=== PATIENT | female | born 1990 | race American Indian/Alaskan Native ===

== ENCOUNTER 2016-10-08 12:06 | Emergency (ER) | payer OTHER ==
[2016-10-08 12:13] VITALS: BP 125/58; PULSE 93; TEMP 98.1; BMI 22.4
[2016-10-08] MEDS ORDERED: LIDOCAINE 2.5%/PRILOCAINE 2.5% (5 Gram/TUBE) TP ONE (14:34)
--- NOTE | 2016-10-08 14:50 | PDOC ---
History of Present Illness - General Chief Complaint: Hemorrhoids Stated Complaint: RECTAL BLEEDING Time Seen by Provider: 10/08/16 13:32 History Source: Patient Exam Limitations: No Limitations - History of Present Illness Initial Comments: 10/08/16 15:30 My Chief Complaint: rectal bleeding today, hemorrhoid History of Present Illness: Pt. is a 26 year old female with no significant medical issues here today due to pt.noticing bleeding from his rectum today, with external hemorrhoid that has been enlarged and painful. Pt.'s noticed that hemorrhoid was bluish this morning and is not longer blusish now. Pt. reports having external hemorrhoid when she was over one year ago. She denies any nausea or vomiting or diarrhea patient last had a bowel movement small brown soft formed earlier today. Reports at times when having a bowel movement. Pt. denies any chance of . Timing/Duration: getting worse (bleeding from rectum, hemorrhoid external ) Severity: moderate Associated Symptoms: reports: other Past History - Past Medical History Allergies/Adverse Reactions: Allergies Allergy/AdvReac Type Severity Reaction Status Date / Time No Known Allergies Allergy Verified 10/08/16 12:12 Home Medications: Ambulatory Orders Oxycodone HCl/Acetaminophen [Percocet 5-325 mg Tablet] 1 tab PO Q6H PRN #11 tablet MDD 4 10/08/16 Asthma: No Cancer: No Cardiac Disorders: No Diabetes: No HTN: No Suicide Attempt (Hx): No Seizures: No Thyroid Disease: No Other medical history: PATIENT DENIES MEDICAL HX - Psycho/Social/Smoking Cessation Hx Suicidal Ideation: No Smoking History: Never smoked Have you smoked in the past 12 months: No Hx Alcohol Use: No Drug/Substance Use Hx: No Substance Use Type: None Hx Substance Use Treatment: No Review of Systems - Review of Systems Able to Perform ROS?: Yes Constitutional: No: Symptoms Reported HEENTM: No: Symptoms Reported Respiratory: No: Symptoms reported Cardiac (ROS): No: Symptoms Reported ABD/GI: Yes: Other (bleeding from rectal area external hemorrhoid today ) : No: Symptoms Reported Musculoskeletal: No: Symptoms Reported Integumentary: No: Symptoms Reported Neurological: No: Symptoms reported *Physical Exam - Vital Signs Last Vital Signs Temp Pulse Resp BP Pulse Ox 98.1 F 93 H 16 125/58 96 10/08/16 12:10/08/16 12:09 10/08/16 12:09 10/08/16 12:09 10/08/16 12:09 - Physical Exam General Appearance: Yes: Appropriately Dressed Respiratory/Chest: positive: Lungs Clear, Normal Breath Sounds Cardiovascular: positive: Regular Rhythm, Regular Rate, S1, S2 Gastrointestinal/Abdominal: positive: Normal Bowel Sounds, Soft. negative: Tender, Organomegaly, Distended, Guarding, Rebound, Tenderness, Hepatomegaly, Spleenomegaly Rectal Exam: positive: hemorrhoids (external inflammed with bleeding, tiny open area on hemorroid noted, with clot, unable to do rectal exam due to pain). negative: decreased tone Integumentary: positive: Normal Color Neurologic: positive: Alert, Responsive Medical Decision Making - Medical Decision Making 10/08/16 15:35 Pt. is a 26 year old female with no significant medical issues here today due to pt.noticing bleeding from his rectum today, with external hemorrhoid that has been enlarged and painful. Pt.'s noticed that hemorrhoid was bluish this morning and is not longer blusish now. Pt. reports having external hemorrhoid when she was over one year ago. She denies any nausea or vomiting or diarrhea patient last had a bowel movement small brown soft formed earlier today. Reports at times when having a bowel movement. Pt. denies any chance of . External ruptured thrombosed external hemorrhoid PLAN: urine hcg negative percocet 5 mg/325 mg po now than every 6 hrs prn severe pain # 12 hemmocult + emla cream applied in ER to apply 4 hrs prn pain unable to do rectal exam due to pain Dr. Pinto consulted her recommended percocet 5mg/325 mg every 6 hrs prn pain sitz bath if this alleviates pain 30 Gm of fiber daily, may eat three bars of fiber one daily and drink 64 oz of water daily ' follow up with him tomorrow to call his office [phone] 10/08/16 18:47 *DC/Admit/Observation/Transfer Diagnosis at time of Disposition: Bleeding external hemorrhoids - Discharge Dispostion Disposition: HOME Condition at time of disposition: Stable - Prescriptions Prescriptions: Oxycodone HCl/Acetaminophen [Percocet 5-325 mg Tablet] 1 tab PO Q6H PRN #11 tablet MDD 4 PRN Reason: Severe Pain - Referrals Referrals: Nick Pinto MD [Staff Physician] - - Patient Instructions Additional Instructions: sitz bath if this alleviates pain 30 Gm of fiber daily, may eat three bars of fiber one daily and drink 64 oz of water daily ' follow up with him tomorrow to call his office [phone] apply EMLA cream every 4 hours to hemorrhoid return to emergency room if bleeding or pain is severe Patient voiced understanding of discharge instructions and all questions were answered - Post Discharge Activity Work/School Note: Back to Work
[2016-10-08] MEDS ORDERED: OXYCODONE/APAP 5/325MG COMBO TABLET PO ONE (15:07)
[2016-10-08] MEDS ORDERED: OXYCODONE/APAP 5/325MG COMBO TABLET ONE (15:14)
== END 2016-10-08 15:43 | disposition home or self-care (01) ==
LOC: JERFT 12:06
DX: K64.5 Perianal venous thrombosis (principal)
CPT/HCPCS: 82272; 84703; 99281-25

== ENCOUNTER 2020-12-31 11:01 | Emergency (ER) | payer OTHER ==
[2020-12-31 11:09] VITALS: BMI 24.0
[2020-12-31] MEDS ORDERED: SODIUM CHLORIDE 0.9% 500 ML INFUS.BAG IV ONE (11:37)
[2020-12-31 12:17] LABS: BASO % 0.2 % (0-2.0); EOS % 0.2 % (0-4.5); HEMATOCRIT 29.3 % (32.4-45.2); HEMOGLOBIN 9.9 GM/dL (10.7-15.3); LYMPH % 13.6 % (8-40); MCH 30.5 pg (25.7-33.7); MCHC 33.9 g/dl (32.0-36.0); MEAN CELL VOLUME 89.9 fl (80-96); MEAN PLT VOLUME 7.5 fl (7.5-11.1); MONO % 4.4 % (3.8-10.2); NEUT % 81.6 % (42.8-82.8); PLATELET COUNT 249 10^3/uL (134-434); RBC 3.26 M/mm3 (3.60-5.2); RDW 13.9 % (11.6-15.6); WHITE BLOOD COUNT 14.1 K/mm3 (4.0-10.0)
[2020-12-31 12:23] LABS: INR 1.02 (0.83-1.09); PROTHROMBIN TIME (PATIENT) 12.3 SEC (9.7-13.0)
[2020-12-31 12:25] LABS: ACTIVATED PTT 27.5 SECONDS (25.2-36.5)
[2020-12-31 12:36] LABS: CALCIUM 8.9 mg/dL (8.5-10.1)
[2020-12-31 12:37] LABS: ALBUMIN 2.9 g/dl (3.4-5.0)
[2020-12-31 12:40] LABS: CREATININE 0.5 mg/dL (0.55-1.3)
[2020-12-31 12:41] LABS: BILIRUBIN,TOTAL 0.2 mg/dL (0.2-1)
[2020-12-31 12:42] LABS: TOT PROT 6.7 g/dl (6.4-8.2)
[2020-12-31 13:17] LABS: URINE APPEARANCE Clear; URINE BILIRUBIN Negative (NEGATIVE); URINE COLOR Yellow; URINE GLUCOSE (UA) Negative (NEGATIVE); URINE KETONE Negative (NEGATIVE); URINE LEUK ESTERASE Negative (NEGATIVE); URINE NITRITE Negative (NEGATIVE); URINE PROTEIN Negative (NEGATIVE); URINE UROBILINOGEN 0.2 mg/dL (0.2-1.0)
[2020-12-31 14:33] VITALS: BP 85/49; PULSE 84; TEMP 98.7
== END 2020-12-31 15:00 | disposition home or self-care (01) ==
LOC: JER 11:01
DX: O20.8 Other hemorrhage in early pregnancy (principal); Z3A.17 17 weeks gestation of pregnancy
CPT/HCPCS: 36415; 76815-TC; 76817-TC; 80053; 81003; 85025; 85610; 85730; 86850; 86900; 86901; 93005; 93010; 99284-25

== ENCOUNTER 2021-01-26 16:15 | Inpatient (IN) | payer OTHER ==
[2021-01-26 18:22] LABS: HEMATOCRIT 25.9 % (32.4-45.2); HEMOGLOBIN 8.9 GM/dL (10.7-15.3); MCH 31.5 pg (25.7-33.7); MCHC 34.3 g/dl (32.0-36.0); MEAN CELL VOLUME 92.1 fl (80-96); PLATELET COUNT 270 10^3/uL (134-434); RBC 2.81 M/mm3 (3.60-5.2); RDW 14.6 % (11.6-15.6); WHITE BLOOD COUNT 10.4 K/mm3 (4.0-10.0)
[2021-01-26 18:30] LABS: INR 0.95 (0.83-1.09); PROTHROMBIN TIME (PATIENT) 11.7 SEC (9.7-13.0)
[2021-01-26 18:33] LABS: ACTIVATED PTT 23.4 SECONDS (25.2-36.5)
[2021-01-26] MEDS ORDERED: ELECTROLYTE-148 SOLN 1,000 ML IV SCH (19:30)
[2021-01-26] MEDS ORDERED: BUTORPHANOL TARTRATE 1 MG/ML VIAL IVPUSH ONE (21:14)
[2021-01-26] MEDS ORDERED: PROMETHAZINE HCL 25 MG/1 ML VIAL IVPUSH ONE (21:14)
[2021-01-26 22:09] VITALS: BMI 24.2
[2021-01-27 08:33] LABS: BASO % 0.1 % (0-2.0); EOS % 0.8 % (0-4.5); HEMATOCRIT 21.3 % (32.4-45.2); HEMOGLOBIN 7.3 GM/dL (10.7-15.3); LYMPH % 23.2 % (8-40); MCH 32.2 pg (25.7-33.7); MCHC 34.3 g/dl (32.0-36.0); MEAN CELL VOLUME 93.9 fl (80-96); MEAN PLT VOLUME 8.3 fl (7.5-11.1); NEUT % 69.9 % (42.8-82.8); PLATELET COUNT 215 10^3/uL (134-434); RBC 2.26 M/mm3 (3.60-5.2); RDW 14.4 % (11.6-15.6); WHITE BLOOD COUNT 9.1 K/mm3 (4.0-10.0)
[2021-01-27 08:41] LABS: INR 0.96 (0.83-1.09); PROTHROMBIN TIME (PATIENT) 11.6 SEC (9.7-13.0)
[2021-01-27] MEDS: INDOMETHACIN 25 MG CAPSULE PO SCH ×2 (16:30→21:42)
[2021-01-28 03:25] LABS: BASO % 0.1 % (0-2.0); EOS % 0.9 % (0-4.5); HEMATOCRIT 29.5 % (32.4-45.2); HEMOGLOBIN 10.4 GM/dL (10.7-15.3); LYMPH % 24.7 % (8-40); MCH 31.8 pg (25.7-33.7); MCHC 35.1 g/dl (32.0-36.0); MEAN CELL VOLUME 90.5 fl (80-96); MONO % 6.4 % (3.8-10.2); NEUT % 67.9 % (42.8-82.8); PLATELET COUNT 204 10^3/uL (134-434); RBC 3.27 M/mm3 (3.60-5.2); RDW 14.3 % (11.6-15.6)
[2021-01-28] MEDS: INDOMETHACIN 25 MG CAPSULE PO SCH ×4 (06:00→21:20)
[2021-01-28] MEDS ORDERED: IRON SUCROSE INJECTION 300 MG in SODIUM CHLORIDE 235 ML IVPB ONE (09:54)
[2021-01-28] MEDS ORDERED: CEFAZOLIN 2 GM/D5W 2 GM/50 ML ML IVPB ONE (10:13)
[2021-01-28] MEDS: DEXTROSE 5%-NORMAL SALINE 1,000 ML IV SCH (10:15)
[2021-01-28] MEDS: ceFAZolin 2 GRAM PREMIX BAG IVPB SCH ×2 (10:20→17:53)
[2021-01-28 10:31] LABS: EPI CELLS 12 /uL (0-25.1); HYALINE CASTS 0 /uL (0-3.1); PH,URINE 6.5 (5.0-8.0); URINE APPEARANCE CLEAR; URINE BACTERIA 157 /uL (0-1359); URINE BILIRUBIN NEGATIVE (NEGATIVE); URINE COLOR YELLOW; URINE GLUCOSE (UA) NEGATIVE (NEGATIVE); URINE KETONE NEGATIVE (NEGATIVE); URINE LEUK ESTERASE TRACE (NEGATIVE); URINE NITRITE NEGATIVE (NEGATIVE); URINE PROTEIN NEGATIVE (NEGATIVE); URINE RBC 3 /uL (0-23.9); URINE UROBILINOGEN 0.2 mg/dL (0.2-1.0); URINE WBC 19 /uL (0-25.8)
[2021-01-29] MEDS: INDOMETHACIN 25 MG CAPSULE PO SCH ×4 (02:15→21:11)
[2021-01-29] MEDS: ceFAZolin 2 GRAM PREMIX BAG IVPB SCH (02:15)
[2021-01-29 08:55] LABS: INR 1.01 (0.83-1.09); PROTHROMBIN TIME (PATIENT) 12.2 SEC (9.7-13.0)
[2021-01-29 08:57] LABS: ACTIVATED PTT 27.2 SECONDS (25.2-36.5); BASO % 0.1 % (0-2.0); HEMATOCRIT 30.2 % (32.4-45.2); HEMOGLOBIN 10.6 GM/dL (10.7-15.3); MCH 31.7 pg (25.7-33.7); MCHC 35.2 g/dl (32.0-36.0); MEAN CELL VOLUME 90.1 fl (80-96); MEAN PLT VOLUME 8.2 fl (7.5-11.1); MONO % 5.3 % (3.8-10.2); NEUT % 77.6 % (42.8-82.8); PLATELET COUNT 220 10^3/uL (134-434); RBC 3.35 M/mm3 (3.60-5.2); RDW 14.5 % (11.6-15.6); WHITE BLOOD COUNT 10.3 K/mm3 (4.0-10.0)
[2021-01-29 09:23] LABS: BLOOD UREA NITROGEN 4.8 mg/dL (7-18); CALCIUM 8.2 mg/dL (8.5-10.1)
[2021-01-29 09:24] LABS: ALBUMIN 2.3 g/dl (3.4-5.0)
[2021-01-29 09:27] LABS: CREATININE 0.5 mg/dL (0.55-1.3)
[2021-01-29 09:28] LABS: BILIRUBIN,TOTAL 0.4 mg/dL (0.2-1); TOT PROT 5.6 g/dl (6.4-8.2)
[2021-01-29] MEDS: DEXTROSE 5%-NORMAL SALINE 1,000 ML IV SCH (19:31)
[2021-01-29] MEDS: CEPHALEXIN MONOHYDRATE 500 MG CAPSULE (UD) PO SCH (21:27)
[2021-01-30] MEDS: INDOMETHACIN 25 MG CAPSULE PO SCH ×2 (03:04→08:27)
[2021-01-30] MEDS: CEPHALEXIN MONOHYDRATE 500 MG CAPSULE (UD) PO SCH ×2 (09:38→21:44)
[2021-01-30] MEDS: DEXTROSE 5%-NORMAL SALINE 1,000 ML IV SCH (19:33)
[2021-01-31 08:59] LABS: HEMATOCRIT 30.7 % (32.4-45.2); HEMOGLOBIN 10.6 GM/dL (10.7-15.3); MCH 31.5 pg (25.7-33.7); MCHC 34.7 g/dl (32.0-36.0); MEAN CELL VOLUME 90.9 fl (80-96); MEAN PLT VOLUME 7.6 fl (7.5-11.1); PLATELET COUNT 201 10^3/uL (134-434); RBC 3.38 M/mm3 (3.60-5.2); RDW 14.9 % (11.6-15.6); WHITE BLOOD COUNT 10.6 K/mm3 (4.0-10.0)
[2021-01-31] MEDS: CEPHALEXIN MONOHYDRATE 500 MG CAPSULE (UD) PO SCH ×2 (10:12→21:20)
[2021-01-31 13:15] LABS: INR 0.95 (0.83-1.09); PROTHROMBIN TIME (PATIENT) 11.5 SEC (9.7-13.0)
[2021-01-31 13:17] LABS: ACTIVATED PTT 26.5 SECONDS (25.2-36.5)
[2021-01-31] MEDS ORDERED: DEXTROSE 5%-NORMAL SALINE 500 ML IV ONE (18:03)
[2021-01-31] MEDS ORDERED: DEXTROSE 5%-NORMAL SALINE 1,000 ML IV SCH (18:15)
[2021-01-31] MEDS: NIFEdipine 10 MG CAPSULE (FP) PO SCH (21:20)
[2021-02-01] MEDS: NIFEdipine 10 MG CAPSULE (FP) PO SCH ×3 (05:11→22:02)
[2021-02-01] MEDS: CEPHALEXIN MONOHYDRATE 500 MG CAPSULE (UD) PO SCH ×2 (10:18→22:02)
[2021-02-02] MEDS: NIFEdipine 10 MG CAPSULE (FP) PO SCH ×3 (06:10→21:21)
[2021-02-02] MEDS ORDERED: DEXTROSE 5%-NORMAL SALINE 1,000 ML IV SCH (07:15)
[2021-02-02] MEDS: CEPHALEXIN MONOHYDRATE 500 MG CAPSULE (UD) PO SCH ×2 (10:09→21:21)
[2021-02-03] MEDS: NIFEdipine 10 MG CAPSULE (FP) PO SCH ×3 (06:17→22:09)
[2021-02-03 09:06] LABS: PROTHROMBIN TIME (PATIENT) 12.3 SEC (9.7-13.0)
[2021-02-03 09:08] LABS: ACTIVATED PTT 24.9 SECONDS (25.2-36.5)
[2021-02-03 09:10] LABS: BASO % 0.1 % (0-2.0); EOS % 0.4 % (0-4.5); HEMATOCRIT 24.7 % (32.4-45.2); HEMOGLOBIN 8.7 GM/dL (10.7-15.3); MCH 32.6 pg (25.7-33.7); MCHC 35.2 g/dl (32.0-36.0); MEAN CELL VOLUME 92.6 fl (80-96); MEAN PLT VOLUME 8.2 fl (7.5-11.1); MONO % 5.1 % (3.8-10.2); NEUT % 77.4 % (42.8-82.8); PLATELET COUNT 197 10^3/uL (134-434); RBC 2.67 M/mm3 (3.60-5.2); RDW 14.5 % (11.6-15.6); WHITE BLOOD COUNT 9.4 K/mm3 (4.0-10.0)
[2021-02-03 09:26] LABS: ALBUMIN 2.4 g/dl (3.4-5.0); BLOOD UREA NITROGEN 6.8 mg/dL (7-18); CALCIUM 8.3 mg/dL (8.5-10.1)
[2021-02-03 09:29] LABS: CREATININE 0.4 mg/dL (0.55-1.3)
[2021-02-03 09:30] LABS: BILIRUBIN,TOTAL 0.5 mg/dL (0.2-1); TOT PROT 5.8 g/dl (6.4-8.2)
[2021-02-03] MEDS: DOCUSATE SODIUM 100 MG CAPSULE (FP) PO SCH ×2 (15:03→22:09)
[2021-02-04] MEDS: NIFEdipine 10 MG CAPSULE (FP) PO SCH ×3 (06:39→22:08)
[2021-02-04 08:22] LABS: BASO % 0.1 % (0-2.0); EOS % 0.5 % (0-4.5); HEMATOCRIT 26.9 % (32.4-45.2); HEMOGLOBIN 9.4 GM/dL (10.7-15.3); LYMPH % 17.2 % (8-40); MCH 32.4 pg (25.7-33.7); MCHC 35.1 g/dl (32.0-36.0); MEAN CELL VOLUME 92.2 fl (80-96); MEAN PLT VOLUME 8.1 fl (7.5-11.1); MONO % 4.7 % (3.8-10.2); NEUT % 77.5 % (42.8-82.8); PLATELET COUNT 219 10^3/uL (134-434); RBC 2.92 M/mm3 (3.60-5.2); RDW 14.7 % (11.6-15.6); WHITE BLOOD COUNT 9.4 K/mm3 (4.0-10.0)
[2021-02-04] MEDS: DOCUSATE SODIUM 100 MG CAPSULE (FP) PO SCH ×2 (09:33→22:08)
[2021-02-05] MEDS: NIFEdipine 10 MG CAPSULE (FP) PO SCH ×3 (06:31→22:27)
[2021-02-05] MEDS: DOCUSATE SODIUM 100 MG CAPSULE (FP) PO SCH ×2 (09:23→22:27)
[2021-02-06] MEDS: NIFEdipine 10 MG CAPSULE (FP) PO SCH ×3 (06:08→21:41)
[2021-02-06 08:38] LABS: BASO % 0.2 % (0-2.0); EOS % 0.6 % (0-4.5); HEMATOCRIT 26.4 % (32.4-45.2); HEMOGLOBIN 9.1 GM/dL (10.7-15.3); LYMPH % 14.5 % (8-40); MCH 32.2 pg (25.7-33.7); MCHC 34.5 g/dl (32.0-36.0); MEAN CELL VOLUME 93.4 fl (80-96); MEAN PLT VOLUME 8.2 fl (7.5-11.1); MONO % 5.5 % (3.8-10.2); NEUT % 79.2 % (42.8-82.8); PLATELET COUNT 245 10^3/uL (134-434); RBC 2.83 M/mm3 (3.60-5.2); RDW 14.8 % (11.6-15.6); WHITE BLOOD COUNT 9.1 K/mm3 (4.0-10.0)
[2021-02-06] MEDS ORDERED: DEXTROSE 5%-LACTATED RINGERS 1,000 ML IV SCH (09:30)
[2021-02-06] MEDS ORDERED: IRON SUCROSE INJECTION 300 MG in SODIUM CHLORIDE 235 ML IVPB ONE (10:15)
[2021-02-06] MEDS: DOCUSATE SODIUM 100 MG CAPSULE (FP) PO SCH ×2 (10:41→21:41)
[2021-02-06] MEDS: ACETAMINOPHEN 500 MG TABLET (FP) PO PRN (20:22)
[2021-02-07] MEDS: NIFEdipine 10 MG CAPSULE (FP) PO SCH (06:09)
[2021-02-07] MEDS: DOCUSATE SODIUM 100 MG CAPSULE (FP) PO SCH (12:12)
[2021-02-07] MEDS: ACETAMINOPHEN 500 MG TABLET (FP) PO PRN (12:12)
[2021-02-07 15:00] VITALS: BP 80/48; PULSE 91; TEMP 98
== END 2021-02-07 13:45 | disposition short-term general hospital (02) | DRG 833 ==
LOC: JASUSAT 16:15 → JDEL 16:15 → JLDR 19:14 → J3W 01-28 12:51
PROVIDERS: ADMIT Obstetrics & Gynecology; ATTEND Obstetrics & Gynecology
PROC: 30233N1 Transfusion of Nonautologous Red Blood Cells into Peripheral Vein, Percutaneous Approach (ICD-10-PCS; principal; 2021-01-27)
DX: O45.8X2 Other premature separation of placenta, second trimester (principal); O99.012 Anemia complicating pregnancy, second trimester; Z3A.22 22 weeks gestation of pregnancy; O46.8X2 Other antepartum hemorrhage, second trimester; O26.52 Maternal hypotension syndrome, second trimester
CPT/HCPCS: 36415; 36430; 36511; 59025; 76801-TC; 76830-TC; 80053; 81003; 85025; 85027; 85379; 85384; 85610; 85730; 86850; 86900; 86901; 86922; 87077; 87086; C9803; J1756; P9038; P9058; U0003; U0005